=== PATIENT | male | born 1995 | race African-American/Black ===

== ENCOUNTER 2016-11-08 07:48 | Emergency (ER) | payer SELFPAY ==
[~2016-11-08] VITALS: Ht 180.3 cm; Wt 70.8 kg
[2016-11-08 07:50] VITALS: BP 163/76
[2016-11-08 08:29] LABS: BILIRUBIN,URINE NEGATIVE (NEG); GLUCOSE,URINE NEGATIVE (NEG); NITRITE,URINE NEGATIVE (NEG); PROTEIN,URINE NEGATIVE (NEG-TRACE)
[2016-11-08 08:35] LABS: BACTERIA,URINE FEW /HPF (0-FEW); RBC,URINE OCC /HPF (0-2); WBC,URINE >40 /HPF (0-4)
[2016-11-08] MEDS ORDERED: CEFTRIAXONE IM 250 MG VIAL. IM ONE (08:45)
[2016-11-08] MEDS ORDERED: AZITHROMYCIN 250 MG TABLET PO ONE (08:45)
[2016-11-08] MEDS ORDERED: METRONIDAZOLE 500 MG TABLET. PO ONE (08:45)
[2016-11-08] MEDS ORDERED: CIPR500T94 PO (08:50)
--- NOTE | 2016-11-08 08:50 | PHYS DOC ---
Past Medical History Past Medical History: No Pertinent History Past Surgical History: No Surgical History Alcohol Use: None Drug Use: Marijuana, Other Social History Narrative: "DOPE" Adult General Chief Complaint Chief Complaint: SEXUALLY TRANSMITTED DISEASE HPI HPI Patient is a 21 year old presents to the emergency department stating that he has been having painful urination since the end of September. He also states that he has been having some penile drainage. He states that he was incarcerated approximately 2 weeks ago and they have provided him with 2 pills although he does not know with the 2 pills were called. He states that he has been still continuing to have difficulty with urination. Denies any blood being in the urine. Denies any nausea vomiting denies any flank pain. Denies any fever , chills. Review of Systems Review of Systems Constitutional: Denies fever or chills [] Eyes: Denies change in visual acuity, redness, or eye pain [] HENT: Denies nasal congestion or sore throat [] Respiratory: Denies cough or shortness of breath [] Cardiovascular: No additional information not addressed in HPI [] GI: Denies abdominal pain, nausea, vomiting, bloody stools or diarrhea [] : dysuria denies hematuria [] Musculoskeletal: Denies back pain or joint pain [] Integument: Denies rash or skin lesions [] Neurologic: Denies headache, focal weakness or sensory changes [] Physical Exam Physical Exam Constitutional: Well developed, well nourished, no acute distress, non-toxic appearance. [] HENT: Normocephalic, atraumatic, bilateral external ears normal, oropharynx moist, no oral exudates, nose normal. [] Eyes: PERRLA, EOMI, conjunctiva normal, no discharge. [] Neck: Normal range of motion, no tenderness, supple, no stridor. [] Cardiovascular:Heart rate regular rhythm, no murmur [] Lungs & Thorax: Bilateral breath sounds clear to auscultation [] Skin: Warm, dry, no erythema, no rash. [] Back: No tenderness, no CVA tenderness. [] Extremities: No tenderness, no cyanosis, no clubbing, ROM intact, no edema. [] Neurologic: Alert and oriented X 3, normal motor function, normal sensory function, no focal deficits noted. [] Psychologic: Affect normal, judgement normal, mood normal. [] Current Patient Data Vital Signs Vital Signs Date Time Temp Pulse Resp B/P Pulse Ox O2 Delivery O2 Flow Rate FiO2 11/08/16 07:50 98.2 107 16 95 Room Air 98.2 Lab Values Laboratory Tests Test 11/08/16 08:22 Urine Collection Type Void Urine Color Yellow Urine Clarity Clear Urine pH 7.0 Urine Specific [place] 1.025 Urine Protein Negativemg/dL (NEG-TRACE) Urine Glucose (UA) Negativemg/dL (NEG) Urine Ketones (Stick) Negativemg/dL (NEG) Urine Blood Negative (NEG) Urine Nitrite Negative (NEG) Urine Bilirubin Negative (NEG) Urine Urobilinogen Dipstick 1.0mg/dL (0.2 mg/dL) Urine Leukocyte Esterase Large (NEG) Urine RBC Occ/HPF (0-2) Urine WBC >40/HPF (0-4) Urine Bacteria Few/HPF (0-FEW) Urine Mucus Marked/LPF EKG EKG [] Radiology/Procedures Radiology/Procedures [] Course & Med Decision Making Course & Med Decision Making Pertinent Labs and Imaging studies reviewed. (See chart for details) Patient was treated with Rocephin, Zithromax and Flagyl here in the emergency department. Patient will be discharged home on Cipro for urinary tract infection. Patient was instructed to drink plenty of water and cranberry juice. Avoid cranberry juice cocktail, new beverages, citrus fruits of alcohol and caffeine disease are considered irritants to the bladder. Patient agrees with discharge instructions treatment regimens and follow-up recommendations. Also instructed patient to avoid sexual intercourse until all of his partners have been treated. Patient agrees with discharge instructions treatment regimens and follow-up recommendations. [] Dragon Disclaimer Dragon Disclaimer This electronic medical record was generated, in whole or in part, using a voice recognition dictation system. Departure Departure Impression: Primary Impression: Urinary tract infection Additional Impression: Sexually transmitted disease exposure Disposition: 01 HOME, SELF-CARE Condition: STABLE Referrals: NO PCP (PCP) Patient Instructions: Sexually Transmitted Disease, [id number], Urinary Tract Infection, [id number] Additional Instructions: Activity as tolerated Medication as prescribed Drink plenty of fluids such as water and cranberry Avoid cranberry juice cocktail, caffeine, carbonated beverages, citrus fruits and alcohol as these are considered irritants to the bladder Avoid sexual activity until your partners have been treated. Use condoms whenever you are having sex, this will prevent sexually transmitted infections. Refrain from will also prevent transmission of sexually transmission infections. Followup with your primary care provider in 5-7 days Return to emergency department as needed for signs and symptoms that become worse Scripts Ciprofloxacin Hcl (Cipro)500 Mg Tablet1 Tab PO BID #14 TAB Prov:HALEY MANDEL NP 11/08/16 Problem Qualifiers HALEY MANDEL NP Nov 08, 2016 08:50
--- NOTE | 2016-11-10 16:56 | VNOTE ---
CALL BACK NOTE CALL BACK Microbiology 11/08/16 Urine Culture - Final, Complete 11/08/16 Urine Culture Result 1 (LG) - Final, Complete GC and chlamydia PCR test results received in the emergency room today. Patient tested positive for gonorrhea. Upon review of patient's care note here 2 days ago, he did receive azithromycin and Rocephin here in the emergency department. Attempted contact at the phone number listed in patient's demographic information. A young lady answered the phone. I asked her to leave a message for patient to call the emergency department in reference to his test results. EARNEST ZEE Nov 10, 2016 16:56
== END 2016-11-08 09:17 | disposition home or self-care (01) ==
LOC: ER 07:48
DX: N39.0 Urinary tract infection, site not specified (principal); Z20.2 Contact with and (suspected) exposure to infections with a predominantly sexual mode of transmission
CPT/HCPCS: 81001; 87086; 87491; 87591; 96372; 99284; J0696; Q0144